=== PATIENT | male | born 1990 | race Caucasian/White ===

== ENCOUNTER 2025-01-03 01:29 | Emergency (ER) | payer SELFPAY ==
[2025-01-03 01:46] VITALS: BP 139/88
--- NOTE | 2025-01-03 03:19 | ED.GENMED ---
History of Present Illness
General
Chief Complaint: Musculo-Skeletal Complaint
Source: patient
Exam Limitations: none
Time Seen by Provider: 01/03/25 02:53
Nursing documentation reviewed up to this point in time: agreed with
History of Present Illness
History of Present Illness:
34-year-old male presenting to the emergency department today after an injury to his right knee while playing volleyball prior to arrival. Claims that he landed and twisted awkwardly and felt a sharp pain and has felt unstable to the joint since.
Denies numbness weakness or additional concerns.
Review of Systems
Review of Systems
Allergies reviewed?: Yes
All Other Systems: ROS reviewed and negative except as documented in HPI and ROS
Phy Exam
Physical Exam
Physical Exam:
GENERAL: Alert , in no apparent distress
EYE: pupils equal and reactive
NECK: Supple, no significant adenopathy.
ENT: o/p clr, mmm.
CARDIAC: Regular rate and rhythm .
LUNGS: Clear breath sounds bilaterally, no acute respiratory distress, no wheezes/rales/rhonchi
ABDOMEN: Soft, without focal tenderness, no r/g, no cvat
NEUROLOGICAL: Alert and oriented, no focal neuro deficits
SKIN: Warm and dry, skin intact.
MUSCULOSKELETAL: Vague discomfort throughout the knee mainly to the medial aspect of the knee good range of motion he is able to straight leg raise. No edema, well perfused.
PSYCH: Normal and appropriate interaction.
Course
Orders/Labs/Results
Orders:
Orders
01/03/25 01:51
Knee, Right 4 or More Views [CR Knee- Right 4 Or More View*] Urgent
Comment:
Reason For Exam: injury
01/03/25 03:19
Ketorolac [Toradol] 15 mg IM NOW STA
Vital Signs
Initial and Last Documented VS:
Initial Vital Signs
Temp Pulse Resp BP Pulse Ox
99.2 F 125 20 139/88 98
01/03/25 01:46 01/03/25 01:46 01/03/25 01:46 01/03/25 01:46 01/03/25 01:46
Last Documented Vital Signs
Temp Pulse Resp BP Pulse Ox
99.2 F 125 20 139/88 98
01/03/25 01:46 01/03/25 01:46 01/03/25 01:46 01/03/25 01:46 01/03/25 01:46
MDM/Problems Addressed
MDM/Problems Addressed:
34-year-old male presenting with concerns of right knee pain after playing volleyball and twisting awkwardly prior to arrival. X-ray without emergent acute abnormality. Patient with likely internal knee derangement advised for close outpatient
follow-up return precautions given.
*Pulse Oximetry
SaO2: 98
Oxygen Mode of Delivery: Room air
Patient hypoxic: no (98)
*Critical Care Note
Total Time (30-74mins, 75-104mins- exclusive of procedures): Not Applicable
ED Attending Note
-
Portions of this chart may have been created with voice recognition software.� Occasional wrong word or��sound alike� substitutions may have occurred due to the inherent limitations of voice recognition software.
Discharge Plan
Departure
Patient Disposition: Home (Routine Discharge)
Date of Disposition: 01/03/25
Time of Disposition: 03:23
Patient with high blood pressure during this ER visit?: No
Condition: Good
Covid-19: Not Applicable
Discharge Problem:
Internal derangement of knee
Instructions: Sprain (DC)
Referrals:
Don Murdock MD [Active, Orthopedics] - Follow up in 5-7 days
Moose Rodriguez DO [Family Provider, Internal Medicine]
Activity Restrictions/Additional Instructions:
You came to the emergency department today with concerns of a knee injury. Please rest ice compress and elevate and follow-up closely with orthopedics. Return for any worsening, new or concerning symptoms.
Interventions
Interventions:
*Risk Screen - Suicide Last Done: 01/03/25 01:46
*General Assessment Last Done: 01/03/25 01:46
*Neglect/Abuse Screening Last Done: 01/03/25 01:46
*ED- Fall Risk Assessment Last Done: 01/03/25 01:46
*ED COVID-19 Vaccine History Last Done: 01/03/25 01:46
*ED Influenza Vaccine History Last Done: 01/03/25 01:46
Discharge Date and Time
Print Language: WOLOF
[2025-01-03] MEDS: TORADOL 15 MG IM (03:32)
== END 2025-01-03 03:49 | disposition home or self-care (01) ==
LOC: EMR 01:29
PROVIDERS: EMERGENCY PHYSICIAN Student in an Organized Health Care Education/Training Program; FAMILY PHYSICIAN Internal Medicine
DX: M23.90 Unspecified internal derangement of unspecified knee (principal); Y93.68 Activity, volleyball (beach) (court)
CPT/HCPCS: 99283; 96372; 73564